=== PATIENT | male | born 1940 | race Two or more races ===

== ENCOUNTER 2023-06-26 18:47 | Emergency (ER) | payer SELFPAY ==
[~2023-06-26] VITALS: Ht 147.3 cm; Wt 66.8 kg
[2023-06-26] MEDS ORDERED: TRAM-626 PO (20:58)
[2023-06-26] MEDS: predniSONE 20 MG TAB PO ONE (22:04)
[2023-06-26] MEDS: HYDROcodone-ACET 5/325MG TAB PO ONE (22:05)
[2023-06-26 23:10] VITALS: BP 134/73; PULSE 68; RESP 18; TEMP 97.6; O2SAT 95
== END 2023-06-26 23:10 | disposition home or self-care (01) ==
LOC: ER 18:47
DX: M25.562 Pain in left knee (principal); M79.605 Pain in left leg; M25.462 Effusion, left knee; I10 Essential (primary) hypertension
CPT/HCPCS: 29505; 93971; 99284; J7512